=== PATIENT | female | born 1940 | race Caucasian/White ===

== ENCOUNTER → 2017-02-20 | Outpatient (CLI) | payer MEDICARE, OTHER | LOC: MC.RAD 01-13 09:40 | DX: Z12.31 Encounter for screening mammogram for malignant neoplasm of breast (principal) ==

== ENCOUNTER → 2017-03-17 | Outpatient (CLI) | payer MEDICARE, OTHER | LOC: COL.RAD 12:45 | DX: E04.2 Nontoxic multinodular goiter (principal) ==

== ENCOUNTER → 2018-03-02 | Outpatient (CLI) | payer MEDICARE, OTHER | LOC: MC.RAD 10:00 | DX: Z12.31 Encounter for screening mammogram for malignant neoplasm of breast (principal) ==